=== PATIENT | female | born 1995 | race Caucasian/White ===

== ENCOUNTER 2017-02-08 21:37 | Emergency (ER) | payer OTHER ==
[2017-02-08 23:01] LABS: BILIRUBIN NEGATIVE (NEGATIVE); BLOOD 3+ Ery/uL (NEGATIVE); CLARITY SLIGHTLY HAZY (CLEAR); COLOR RED (YELLOW); GLUCOSE (U) NORMAL (NORMAL); KETONE (U) NEGATIVE (NEGATIVE); LEUKOCYTES TRACE Leu/uL (NEGATIVE); NITRITE NEGATIVE (NEGATIVE); PROTEIN TRACE (LOW) mg/dL (NEGATIVE); SPECIFIC GRAVITY <=1.005 (1.001-1.030); UROBILINOGEN 0.2 mg/dL (0.2-1.0)
[2017-02-08 23:06] LABS: BACTERIA TRACE; MUCOUS TRACE; URINARY RBC 20-50
[2017-02-08 23:52] LABS: BASOPHIL 0.1 % (0-2); EOSINOPHIL 0.3 % (0-5); HCT 35.7 % (37.0-47.0); HGB 12.5 g/dl (12.5-16.0); MCH 29.1 pg (25.0-31.0); MONOCYTE 6.6 % (0-12); MPV 10.2 fL (6.0-9.5); PLT 323 K/uL (150-400); RDW 13.9 % (11.5-14.0); WBC 13.4 K/uL (4.0-10.5)
== END 2017-02-09 02:32 | disposition home or self-care (01) ==
LOC: FER 21:37
PROVIDERS: Emergency Medicine
DX: O20.0 Threatened abortion (principal)
CPT/HCPCS: 36415; 76817; 81001; 84702; 85025; 86850; 86900; 86901

== ENCOUNTER 2021-01-27 10:40 | Emergency (ER) | payer OTHER ==
[2021-01-27 11:37] LABS: BILIRUBIN NEGATIVE (NEGATIVE); BLOOD NEGATIVE Ery/uL (NEGATIVE); CLARITY CLEAR (CLEAR); COLOR YELLOW (YELLOW); GLUCOSE (U) NORMAL (NORMAL); LEUKOCYTES NEGATIVE Leu/uL (NEGATIVE); NITRITE NEGATIVE (NEGATIVE); PROTEIN NEGATIVE (NEGATIVE); SPECIFIC GRAVITY 1.025 (1.001-1.030)
[2021-01-27 12:03] LABS: BASOPHIL 0.5 % (0-2); EOSINOPHIL 0.5 % (0-5); HCT 36.7 % (37.0-47.0); HGB 12.1 g/dl (12.5-16.0); LYMPHOCYTE 16.4 % (15-48); MCH 29.2 pg (25.0-31.0); MCV 88.4 fL (78.0-100.0); MONOCYTE 5.9 % (0-12); NEUTROPHIL 76.3 % (41-80); NRBC 0; PLT 297 K/uL (150-400); RBC 4.15 M/uL (4.20-5.40); RDW 13.5 % (11.5-14.0); WBC 10.6 K/uL (4.0-10.5)
[2021-01-27 12:21] LABS: ALBUMIN 3.7 g/dL (3.4-5.0); BILIRUBIN - TOTAL 0.6 mg/dL (0.2-1.0); BUN/CREAT RATIO (CALC) 15.2 RATIO; CREATININE 0.66 mg/dL (0.51-0.95); POTASSIUM 3.9 mmol/L (3.5-5.1); TOTAL PROTEIN 7.7 g/dL (6.4-8.2)
[2021-01-27] MEDS ORDERED: MIRALAX17 GM PO (14:26)
== END 2021-01-27 14:45 | disposition home or self-care (01) ==
LOC: FER 10:40
PROVIDERS: Emergency Medicine
DX: O99.611 Diseases of the digestive system complicating pregnancy, first trimester (principal); K59.00 Constipation, unspecified; Z79.899 Other long term (current) drug therapy
CPT/HCPCS: 36415; 76817; 80053; 81003; 84702; 85025